=== PATIENT | female | born 1930 | race Caucasian/White ===

== ENCOUNTER 2016-05-03 15:50 | Inpatient (IN) | payer BC ==
[2016-05-02 16:22] LABS: CALCIUM, SERUM 8.1 MG/DL (8.5-10.4)
[2016-05-02 16:28] LABS: BUN (BLOOD UREA NITROGEN) 81 MG/DL (6-23); CHLORIDE, SERUM 105 MMOL/L (96-112); CO2 (CARBON DIOXIDE) 19 MMOL/L (24-34); CREATININE 5.75 MG/DL (0.55-1.02); GFR AFRICAN AMERICAN 7 ML/MIN (>=60); GFR NON AFRICAN AMERICAN 6 ML/MIN (>=60); GLUCOSE, SERUM 106 MG/DL (60-99); SODIUM, SERUM 139 MMOL/L (135-148)
[2016-05-02 16:30] LABS: POTASSIUM, SERUM 5.2 MMOL/L (3.5-5.3)
--- NOTE | ~2016-05-03 | DS ---
Discharge Summary [facility] [address] [place]. [address] NAME: REGINALD HOWARD : 28 STATUS : DIS IN PAT#: [id number] AGE: 86 ADM/REG DATE : 05/03/16 MR#: [id number] REPORT SERV DATE: 05/10/16 DICTATED BY: JO ANN AMAYA DATE: 05/10/16 REPORT STATUS : Draft TRANSCRIBED BY: MODL DATE: 05/10/16 ADMISSION DATE: 05/03/2016 DISCHARGE DATE: 05/10/2016 ADDENDUM: To the interim discharge summary which was dictated by Dr. Lewis on 05/08/2016. DAY OF FINAL DISCHARGE: 05/10/2016. The patient was discharged to [facility]. DIAGNOSES ON DISCHARGE: 1. Status post acute kidney injury, currently resolved. 2. Status post dehydration, resolved. 3. Status post hypokalemia, currently normal potassium level. 4. Hypertension, controlled. 5. History of transient ischemic attack, stable. 6. Status post hypovolemic shock on admission, currently resolved. In the normal volume status. 7. History of dementia, with cerebrovascular accident. 8. History of breast cancer. HISTORY OF PRESENT ILLNESS: For the details of hospitalization, see history of present illness dictated on 05/03, by Dr. Jos Lewis. Also, see interim discharge summary dictated by Dr. Lewis on 05/08/2016. I personally saw this patient on 05/09 and 05/10. The patient was waiting for approval for placement, and she got approved today to go to [facility]. The patient is awake and alert this morning. She was able to follow simple commands. She was able to eat some food. Her volume status was normal. She was not dehydrated and her electrolytes were also normal. Her potassium was 3.8, sodium 142, chloride 107, carbon dioxide 26, BUN was 17, creatinine 0.92, blood sugar was 100. The patient currently was ready to go for inpatient rehab. DISCHARGE MEDICATIONS: Were addressed by Dr. Lewis. Norvasc 5 mg a day, Arimidex 1 mg a day, aspirin 162 mg a day, Aricept 10 mg, multivitamins daily, hydrocortisone Anusol suppository 25 mg p.r.n., milk of magnesia as needed for constipation. The patient was discharged in stable condition. I spent 45 minutes on discharge. MG/NINFAL Jo Ann Amaya M.D. / [id number] Discharge Summary [address] [place] [address] NAME: REGINALD HOWARD : 28 STATUS : DIS IN PAT#: [id number] AGE: 86 ADM/REG DATE : 05/03/16 MR#: [id number] REPORT SERV DATE: 05/10/16 DICTATED BY: JO ANN AMAYA DATE: 05/10/16 REPORT STATUS : Draft TRANSCRIBED BY: DON DATE: 05/10/16 CC: Jo Ann Amaya M.D.
--- NOTE | ~2016-05-03 | IDS ---
Interim Discharge Summary [facility] [address] [place]. [address] NAME: REGINALD HOWARD : 28 STATUS : ADM IN PAT#: [id number] AGE: 86 ADM/REG DATE : 05/03/16 MR#: [id number] REPORT SERV DATE: 05/08/16 DICTATED BY: MIGEL DRUMMOND DATE: 05/08/16 REPORT STATUS : Draft TRANSCRIBED BY: MODL DATE: 05/08/16 ADMISSION DATE: 05/03/2016 DISCHARGE DATE: PRIMARY CARE PHYSICIAN: Jerman Damon doctor and Lni Dc NP INTERIM DIAGNOSES: 1. Status post acute kidney injury. 2. Status post dehydration. 3. Status post hypokalemia. 4. Hypertension. 5. History of transient ischemic attack. 6. Status post hypovolemic shock. 7. Dementia with history of cerebrovascular accident. 8. History of breast cancer. DIAGNOSTIC EXAMS: CAT scan of the brain without contrast showing atrophy, deep white matter changes, sinusitis. Chest x-ray showing linear bands of scar versus atelectasis bilateral, tortuous ectatic aorta. HOSPITAL COURSE: Please refer to the H and P done by myself dated on 05/03/2016. Briefly, this is an 86-year-old female, who comes in for evaluation of renal failure. The patient has a history of dementia, hypertension, CVA, and lives in [facility]. Her baseline is that she can talk, walk, eat, and hard of hearing. However, ten days ago, the patient has decreased p.o. intake. She was diagnosed with urinary tract infection and started on Cipro. The patient continued to deteriorate and not better and she became more lethargic. Of note, she was still taking her blood pressure medications including a diuretic and ARB. The patient fell, now blood was taken and the patient was sent to the emergency room for renal failure evaluation. The patient then got a consultation from the hospitalist department to admit the patient. The patient was found very dehydrated with a creatinine of 5.75. With vigorous hydration, we were able to correct that to 1.0. We also corrected various electrolyte abnormalities. We definitely held her blood pressure medications and when her renal function and dehydration got better, she was transferred out of the floor from the [facility] and was started on Norvasc. We kept her blood pressure under control with just Norvasc alone and her appetite started picking up. We are awaiting for Physical Therapy to do their evaluation and this will determine whether the patient would need to go to a higher level of care or back to [facility]. Meanwhile, the patient is able to talk. She denies any pain and shortness of breath. She does more facial expressions and she is able to eat. A partner of mine will be following up the patient starting Sunday. SHANT/DON Migel Drummond M.D. Interim Discharge Summary [address] [address] NAME: REGINALD HOWARD : 28 STATUS : ADM IN PAT#: [id number] AGE: 86 ADM/REG DATE : 05/03/16 MR#: [id number] REPORT SERV DATE: 05/08/16 DICTATED BY: MIGEL DRUMMOND. DATE: 05/08/16 REPORT STATUS : Draft TRANSCRIBED BY: DON DATE: 05/08/16 / [id number] CC: Migel Drummond M.D.
--- NOTE | ~2016-05-03 | HP ---
History And Physical [facility] [place] [id number] [place]. [address] NAME: REGINALD HOWARD : 28 STATUS : ADM IN PAT#: [id number] AGE: 86 ADM/REG DATE : 05/03/16 MR#: [id number] REPORT SERV DATE: 05/03/16 DICTATED BY: MIGEL DRUMMOND DATE: 05/03/16 REPORT STATUS : Draft TRANSCRIBED BY: MODTiffanie DATE: 05/03/16 DATE OF ADMISSION: 05/03/2016 HISTORY OF PRESENT ILLNESS: This is an 86-year-old female, who was sent here for evaluation of renal failure. The patient has a history of dementia, hypertension, CVA with right hemiplegia with a baseline that she can talk, hard of hearing, walk and eat. She is under the conservatorship of Josephine Santos and lives in [facility]. About 10 days ago, the patient had decrease in p.o. intake, and she was seen by nurse practitioner, Lois. A urinalysis was done, and the patient was started on Cipro six days prior to admission. The patient continued to deteriorate, and three days ago, she started getting weaker, becoming more lethargic, continued to decrease her p.o. intake, and two days ago, the patient fell but did not lose consciousness. Blood work was taken, and the patient was then sent to the emergency room for renal failure evaluation. The ER staff could not get any information from the patient, and they called us to admit the patient. I got to call the [facility] and got the information above. The patient did not have any fever. She had vomiting x1. There are no chills or sweats. There are no syncopal episode nor seizure. There is no open wound. There are no bowel changes, and there were no pain elicited from the patient. REVIEW OF SYSTEMS: The rest of the 14-point review of system is negative except as above. PAST MEDICAL HISTORY: Includes carotid dissection, Mcdonough's palsy, breast cancer, history of questionable surgery for that, hyperlipidemia, dysphagia, history of cerebrovascular accident with right hemiplegia. ALLERGIES: SHE HAS NO KNOWN DRUG ALLERGIES. MEDICATIONS: Include Tylenol, Almacone, Norvasc, Arimidex, vitamin C, aspirin, Tenormin, Lipitor, Cipro, Celexa, Aricept, guaifenesin, Anusol, loperamide, losartan, melatonin, milk of magnesia, multivitamin, MiraLAX, Klor-Con, Seroquel, and Citracal. FAMILY HISTORY: The patient has two daughters, none of them lived in [place]. There was a question whether one of the daughter has substance abuse. SOCIAL HISTORY: The patient does not smoke, drink, or use recreational drugs. PHYSICAL EXAMINATION: GENERAL: The patient is awake, nonverbal, able to track. She is in mild to moderate cardiorespiratory distress. VITAL SIGNS: Blood pressure of 86/52, temperature of 97.2, pulse rate of 56, respiration of 12, saturating at 96% on 3 L. NECK: She has supple neck. No JVD or carotid bruits. No lymphadenopathy. HEENT: Combes conjunctivae. Anicteric sclerae. No pharyngeal erythema. LUNGS: She has clear lungs. No rales. No wheezes. HEART: Bradycardic. No murmurs appreciated. ABDOMEN: Positive bowel sounds. Soft. It is nontender. History And Physical [address] [address] NAME: REGINALD HOWARD : 28 STATUS : ADM IN [facility]#: [id number] AGE: 86 ADM/REG DATE : 05/03/16 MR#: [id number] REPORT SERV DATE: 05/03/16 DICTATED BY: MIGEL DRUMMOND DATE: 05/03/16 REPORT STATUS : Draft TRANSCRIBED BY: DON DATE: 05/03/16 EXTREMITIES: Fair pulses. No edema. SKIN: She has been relatively poor skin turgor. LABORATORY DATA: Reveals a pH of 7.41, pCO2 of 26, pO2 of 85 at 32% FiO2. Sodium of 142, potassium 4.8, bicarb was 21, BUN and creatinine of 90 and 5.48. Glucose of 103, alkaline phosphatase of 304, ALT AST of 53 and 193, troponin is less than 0.02. BNP of 568.6, lactate of 1.9. White count of 7.8, H and H of 11.5 and 35.2, and platelets of 187. INR of 1.5. Urinalysis is unremarkable except for 30 of protein and 50 of glucose, negative ketones. Chest x-ray my reading does not show any acute infiltrates. EKG shows sinus bradycardia at 54, normal axis. No ST-T wave changes. ASSESSMENT: 1. Acute kidney injury. 2. Dehydration. 3. Hypotension with history of hypertension. 4. Dementia with history of CVA and right hemiplegia. PLAN: The patient's SANDHYA is likely due to hypotension from medications and poor p.o. intake. We will hydrate her and monitor her creatinine, hold all her home medications for now. With her change in mental status and history of CVA, we will check a CT head and rule out a CVA. If she continues to deteriorate, we will get both Nephrology and Neurology involved. The patient is a DNR at present but we might need to use pressors, and I will put her on IMCU. This has been explained to the sitter, and she seemed to understand the plan. SHANT/DON Migel Drummond M.D. / [id number] CC: Greta Holder
[~2016-05-03 15:50] MED LIST: ACET500CAP PO; ANTACID PO; ARICEPT10 PO; ATEN50 PO; CALTRAT600 PO; CAT1 PO; CELEXA10 PO; CLARIT10 PO; COZAAR100 MG PO; GANIDIN NR100 MG/5 M PO; IMOD PO; MOMUD PO; MUCINEX1200 MG PO; NORV5 PO; T PO; VITAMIN D1000 UNI1 PO
[2016-05-03 15:57] LABS: BE (BASE EXCESS) -7.3 MEQ/L (0 +/- 2.5); CARBOXYHEMOGLOBIN 0.9 % (0-3); DEVICE NC; HCO3 (ACTUAL BICARBONATE) 15.8 MEQ/L (23-27); INSTRUMENT SERIAL # 8087; METHEMOGLOBIN 0.2 % (0-3); PCO2 (CO2 TENSION) 26 MMHG (35-45); PO2 (O2 TENSION) 85 MMHG (79-93); SAMPLE Arterial; pH 7.41 (7.37-7.43)
[2016-05-03 15:58] LABS: BASOPHILS 0.1 %; BASOPHILS ABSOLUTE 0.01 10/3/uL (0.0-0.16); EOSINOPHILS 0.4 %; EOSINOPHILS ABSOLUTE 0.03 10/3/uL (0.0-0.53); HEMATOCRIT 35.2 % (36.0-48.0); HEMOGLOBIN 11.5 g/dL (12.0-16.0); IMMATURE GRANULOCYTES 0.4 %; IMMATURE GRANULOCYTES ABSOLUTE 0.03 10/3/uL (0.0-0.11); LYMPHOCYTES 11.7 %; LYMPHOCYTES ABSOLUTE 0.91 10/3/uL (0.67-4.30); MANUAL DIFF NO %; MEAN CORPUS HGB CONC 32.7 g/dL (32.0-36.0); MEAN CORPUSCULAR HEMOGLOB 27.4 pg (26.0-34.0); MEAN CORPUSCULAR VOLUME 83.8 fL (80-100); MEAN PLATELET VOLUME 10.1 fL (9.2-13.0); MONOCYTES 8.1 %; MONOCYTES ABSOLUTE 0.63 10/3/uL (0.21-1.20); NEUTROPHILS 79.3 %; NEUTROPHILS ABSOLUTE 6.18 10/3/uL (2.02-8.40); PLATELET COUNT 187 10/3/uL (150-400); RBC DISTRIBUTION WIDTH 17.7 % (12.0-16.0); WHITE BLOOD CELLS 7.8 10/3/uL (4.5-10.5)
[2016-05-03 16:14] LABS: INTERNATIONAL NORMAL RATI 1.5 UNITS (-); PARTIAL THROMBO TIME 29.2 SEC (22.5-37.2); PROTIME (NOT ORD) 17.8 SEC (12.0-14.5)
[2016-05-03 16:15] LABS: ALBUMIN 2.4 G/DL (3.5-5.0); ALKALINE PHOSPHATASE 304 U/L (45-117); BUN (BLOOD UREA NITROGEN) 90 MG/DL (6-23); CALCIUM, SERUM 8.2 MG/DL (8.5-10.4); CHEST PAIN PROFILE TAT 0 Hrs 23 Mins; CHLORIDE, SERUM 108 MMOL/L (96-112); CO2 (CARBON DIOXIDE) 21 MMOL/L (24-34); CREATININE 5.48 MG/DL (0.55-1.02); DIRECT BILIRUBIN 0.4 MG/DL (0.0-0.4); GFR AFRICAN AMERICAN 8 ML/MIN (>=60); GFR NON AFRICAN AMERICAN 7 ML/MIN (>=60); GLUCOSE, SERUM 103 MG/DL (60-99); INDIRECT BILIRUBIN(NOT ORDER) 0.2 MG/DL (0.1-0.9); POTASSIUM, SERUM 4.8 MMOL/L (3.5-5.3); SGOT(AST) 193 U/L (5-40); SGPT(ALT) 53 U/L (5-65); SODIUM, SERUM 142 MMOL/L (135-148); TOTAL BILIRUBIN 0.6 MG/DL (0-1.2); TOTAL PROTEIN 6.6 G/DL (6.0-8.5); TROPONIN I <0.02 NG/ML (<0.05)
[2016-05-03 16:27] LABS: LACTATE 1.9 MMOL/L (0.3-2.4)
[2016-05-03 16:36] LABS: WBC (NOT ORDERED) (RFLEX) 0 (0-5)
[2016-05-03 16:45] LABS: ASCORBIC ACID (UR NOT ORDER) 40 (NEG); BILIRUBIN, URINE NEGATIVE (NEG); ER URINALYSIS TAT 0 Hrs 10 Mins; KETONE, URINE NEGATIVE (NEG); LEUKOCYTE ESTERASE(NOT OR NEG (NEG); NITRITE (URINE) NEG (NEG)
[2016-05-03] MEDS ORDERED: NORV5 PO (17:30)
[2016-05-03] MEDS ORDERED: VITC500 PO (17:31)
[2016-05-03] MEDS ORDERED: ASA5GR PO (17:31)
[2016-05-03] MEDS ORDERED: ATEN50 PO (17:31)
[2016-05-03] MEDS ORDERED: ARIMIDEX1 PO (17:31)
[2016-05-03] MEDS ORDERED: LIPITOR10 PO (17:32)
[2016-05-03] MEDS ORDERED: CIP5 PO (17:32)
[2016-05-03] MEDS ORDERED: CELEXA10 PO (17:33)
[2016-05-03] MEDS ORDERED: ARICEPT10 PO (17:34)
[2016-05-03] MEDS ORDERED: [UNRECOGNIZED DRUG - OTHER] PO (17:34)
[2016-05-03] MEDS ORDERED: COZAAR100 MG PO (17:34)
[2016-05-03] MEDS ORDERED: CITRACAL PO (17:34)
[2016-05-03] MEDS ORDERED: MELA3 PO (17:35)
[2016-05-03] MEDS ORDERED: MIRALAX POWDER1 PKT PO (17:35)
[2016-05-03] MEDS ORDERED: MULTIVITAMI1 PO (17:35)
[2016-05-03] MEDS ORDERED: KLOR-CON M2020 MEQ PO (17:36)
[2016-05-03] MEDS ORDERED: SEROQUEL25 PO (17:37)
[2016-05-03] MEDS ORDERED: T PO (17:38)
[2016-05-03] MEDS ORDERED: [UNRECOGNIZED DRUG - MIXTURE] PO (17:39)
[2016-05-03] MEDS ORDERED: SILTUSSIN100 MG/5 M PO (17:40)
[2016-05-03] MEDS ORDERED: DIAMODE2 MG PO (17:40)
[2016-05-03] MEDS ORDERED: MOMUD PO (17:42)
[2016-05-03] MEDS ORDERED: ANUSOL-HC25 MG PR (17:42)
[2016-05-04 04:35] LABS: BASOPHILS 0.2 %; BASOPHILS ABSOLUTE 0.01 10/3/uL (0.0-0.16); EOSINOPHILS 1.2 %; EOSINOPHILS ABSOLUTE 0.08 10/3/uL (0.0-0.53); HEMATOCRIT 32.4 % (36.0-48.0); HEMOGLOBIN 10.7 g/dL (12.0-16.0); IMMATURE GRANULOCYTES 0.2 %; IMMATURE GRANULOCYTES ABSOLUTE 0.01 10/3/uL (0.0-0.11); LYMPHOCYTES 10.9 %; LYMPHOCYTES ABSOLUTE 0.71 10/3/uL (0.67-4.30); MEAN CORPUSCULAR HEMOGLOB 27.9 pg (26.0-34.0); MEAN CORPUSCULAR VOLUME 84.6 fL (80-100); MEAN PLATELET VOLUME 10.4 fL (9.2-13.0); MONOCYTES 9.9 %; MONOCYTES ABSOLUTE 0.65 10/3/uL (0.21-1.20); NEUTROPHILS 77.6 %; NEUTROPHILS ABSOLUTE 5.08 10/3/uL (2.02-8.40); PLATELET COUNT 174 10/3/uL (150-400); RBC DISTRIBUTION WIDTH 17.6 % (12.0-16.0); RED CELL COUNT 3.83 10/6/uL (4.0-5.6); WHITE BLOOD CELLS 6.5 10/3/uL (4.5-10.5)
[2016-05-04 04:40] LABS: MANUAL DIFF NO %
[2016-05-04 04:57] LABS: A/G RATIO 0.6 (0.7-1.9); CALCIUM, SERUM 7.3 MG/DL (8.5-10.4); CHLORIDE, SERUM 114 MMOL/L (96-112); GLOBULIN 3.5 G/DL (2.5-4.1); POTASSIUM, SERUM 4.2 MMOL/L (3.5-5.3); SGOT(AST) 157 U/L (5-40); SGPT(ALT) 43 U/L (5-65); SODIUM, SERUM 138 MMOL/L (135-148); TOTAL BILIRUBIN 0.7 MG/DL (0-1.2); TOTAL PROTEIN 5.5 G/DL (6.0-8.5)
[2016-05-04 05:13] LABS: ALKALINE PHOSPHATASE 263 U/L (45-117); BUN (BLOOD UREA NITROGEN) 76 MG/DL (6-23); CO2 (CARBON DIOXIDE) 15 MMOL/L (24-34); CREATININE 3.75 MG/DL (0.55-1.02); GFR AFRICAN AMERICAN 12 ML/MIN (>=60); GFR NON AFRICAN AMERICAN 10 ML/MIN (>=60); GLUCOSE, SERUM 76 MG/DL (60-99)
[2016-05-05 05:36] LABS: BASOPHILS 0.1 %; BASOPHILS ABSOLUTE 0.01 10/3/uL (0.0-0.16); EOSINOPHILS 2.4 %; EOSINOPHILS ABSOLUTE 0.18 10/3/uL (0.0-0.53); HEMATOCRIT 34.8 % (36.0-48.0); HEMOGLOBIN 11.5 g/dL (12.0-16.0); IMMATURE GRANULOCYTES 0.4 %; IMMATURE GRANULOCYTES ABSOLUTE 0.03 10/3/uL (0.0-0.11); LYMPHOCYTES 16.3 %; LYMPHOCYTES ABSOLUTE 1.25 10/3/uL (0.67-4.30); MEAN CORPUSCULAR HEMOGLOB 27.8 pg (26.0-34.0); MEAN CORPUSCULAR VOLUME 84.1 fL (80-100); MEAN PLATELET VOLUME 10.7 fL (9.2-13.0); MONOCYTES 9.2 %; NEUTROPHILS 71.6 %; NEUTROPHILS ABSOLUTE 5.48 10/3/uL (2.02-8.40); PLATELET COUNT 174 10/3/uL (150-400); RBC DISTRIBUTION WIDTH 17.8 % (12.0-16.0); RED CELL COUNT 4.14 10/6/uL (4.0-5.6); WHITE BLOOD CELLS 7.7 10/3/uL (4.5-10.5)
[2016-05-05 05:37] LABS: MANUAL DIFF NO %
[2016-05-05 05:52] LABS: BUN (BLOOD UREA NITROGEN) 46 MG/DL (6-23); CALCIUM, SERUM 7.7 MG/DL (8.5-10.4); CHLORIDE, SERUM 119 MMOL/L (96-112); CO2 (CARBON DIOXIDE) 17 MMOL/L (24-34); CREATININE 2.12 MG/DL (0.55-1.02); GFR AFRICAN AMERICAN 24 ML/MIN (>=60); GFR NON AFRICAN AMERICAN 20 ML/MIN (>=60); GLUCOSE, SERUM 95 MG/DL (60-99); POTASSIUM, SERUM 3.7 MMOL/L (3.5-5.3); SODIUM, SERUM 149 MMOL/L (135-148)
[2016-05-06 05:55] LABS: CALCIUM, SERUM 7.6 MG/DL (8.5-10.4); CHLORIDE, SERUM 114 MMOL/L (96-112); CO2 (CARBON DIOXIDE) 20 MMOL/L (24-34); GFR AFRICAN AMERICAN 40 ML/MIN (>=60); GFR NON AFRICAN AMERICAN 35 ML/MIN (>=60); GLUCOSE, SERUM 114 MG/DL (60-99); POTASSIUM, SERUM 3.3 MMOL/L (3.5-5.3); SODIUM, SERUM 147 MMOL/L (135-148)
[2016-05-06 06:05] LABS: BUN (BLOOD UREA NITROGEN) 26 MG/DL (6-23); CREATININE 1.37 MG/DL (0.55-1.02)
[2016-05-07 06:31] LABS: BUN (BLOOD UREA NITROGEN) 14 MG/DL (6-23); CALCIUM, SERUM 7.1 MG/DL (8.5-10.4); CHLORIDE, SERUM 106 MMOL/L (96-112); CO2 (CARBON DIOXIDE) 26 MMOL/L (24-34); CREATININE 1.03 MG/DL (0.55-1.02); GFR AFRICAN AMERICAN 57 ML/MIN (>=60); GFR NON AFRICAN AMERICAN 49 ML/MIN (>=60); GLUCOSE, SERUM 95 MG/DL (60-99); POTASSIUM, SERUM 3.4 MMOL/L (3.5-5.3); SODIUM, SERUM 143 MMOL/L (135-148)
[2016-05-08 08:09] LABS: BUN (BLOOD UREA NITROGEN) 11 MG/DL (6-23); CALCIUM, SERUM 7.6 MG/DL (8.5-10.4); CHLORIDE, SERUM 108 MMOL/L (96-112); CO2 (CARBON DIOXIDE) 28 MMOL/L (24-34); GFR AFRICAN AMERICAN 59 ML/MIN (>=60); GFR NON AFRICAN AMERICAN 51 ML/MIN (>=60); GLUCOSE, SERUM 81 MG/DL (60-99); SODIUM, SERUM 144 MMOL/L (135-148)
[2016-05-09 13:33] LABS: CALCIUM, SERUM 7.7 MG/DL (8.5-10.4); CHLORIDE, SERUM 107 MMOL/L (96-112); CO2 (CARBON DIOXIDE) 26 MMOL/L (24-34); CREATININE 0.92 MG/DL (0.55-1.02); GFR AFRICAN AMERICAN 65 ML/MIN (>=60); GFR NON AFRICAN AMERICAN 56 ML/MIN (>=60); POTASSIUM, SERUM 3.8 MMOL/L (3.5-5.3); SODIUM, SERUM 142 MMOL/L (135-148)
[2016-05-09 13:34] LABS: BUN (BLOOD UREA NITROGEN) 17 MG/DL (6-23); GLUCOSE, SERUM 100 MG/DL (60-99)
== END 2016-05-10 10:34 | DRG 682 ==
LOC: ER 15:50 → IMCU 20:14 → 5SO 05-05 19:21
PROVIDERS: Emergency Medicine; Family Medicine; Hospitalist; Internal Medicine
DX: N17.9 Acute kidney failure, unspecified (principal); R57.1 Hypovolemic shock; I69.351 Hemiplegia and hemiparesis following cerebral infarction affecting right dominant side; E86.0 Dehydration; I10 Essential (primary) hypertension; E87.6 Hypokalemia; F03.90 Unspecified dementia, unspecified severity, without behavioral disturbance, psychotic disturbance, mood disturbance, and anxiety; Z79.899 Other long term (current) drug therapy; Z85.3 Personal history of malignant neoplasm of breast; Z87.440 Personal history of urinary (tract) infections; Z79.82 Long term (current) use of aspirin
CPT/HCPCS: 36600; 70450; 71010; 80048; 80053; 80076; 81001; 82805; 83605; 83735; 83880; 84484; 85025; 85610; 85730; 87641; 93005; 97163-GP; 99291; A9270-GY